=== PATIENT | male | born 1970 | race American Indian/Alaskan Native ===

== ENCOUNTER 2017-12-21 18:23 | Emergency (ER) | payer OTHER ==
[2017-12-21 18:40] VITALS: RESP 18; BMI 27.1
--- NOTE | 2017-12-21 18:58 | ED PDOC ---
Arrival/HPI - General Historian: Patient - History of Present Illness Time/Duration: Other (see hpi) Quality: Aching Context: Home <Remy Sandoval - Last Filed: 12/21/17 20:37> <Hugo Cisse - Last Filed: 12/21/17 20:42> - General Chief Complaint: Fever Time Seen by Provider: 12/21/17 18:58 - History of Present Illness Narrative History of Present Illness (Text): 12/21/17 18:58 This 47 yo male who denies pmh, presents to this ED c/o fever, right posterior thigh, and posterior knee pain x 3 days. Patient stated pain and fever have been progressively worsen. Patient denies sore throat, SOB, CP, abdominal pain , urinary symptoms, penile discharge, testicular pain, genital trauma, skin rash , groin pain, abscess, MOHAN, earache, cough, recent surgery, recent leg trauma, recent travel, sick contact, MOHAN, neck stiffness, photophobia, or dizziness. Patient's girlfriend felt patient right lower leg feels warmer than left leg ( Remy Sandoval) Past Medical History - Provider Review Nursing Documentation Reviewed: Yes - Infectious Disease Hx of Infectious Diseases: None - Cardiac Hx Hypertension: Yes - Psychiatric Hx Substance Use: No <Remy Sandoval - Last Filed: 12/21/17 20:37> Family/Social History - Physician Review Nursing Documentation Reviewed: Yes Family/Social History: Other (noncontributory) Smoking Status: Current Some Days Smoker Hx Alcohol Use: No Hx Substance Use: No <Remy Sandoval - Last Filed: 12/21/17 20:37> Allergies/Home Meds <Remy Sandoval - Last Filed: 12/21/17 20:37> <Hugo Cisse - Last Filed: 12/21/17 20:42> Allergies/Adverse Reactions: Allergies No Known Allergies Allergy (Verified 12/21/17 19:12) Home Medications: Home Meds Medication Instructions Recorded Confirmed Losartan [Cozaar] 12.5 mg PO DAILY 12/21/17 12/21/17 Review of Systems - Review of Systems Constitutional: Fevers. absent: Fatigue, Weight Change, Night Sweats Eyes: Normal. absent: Photophobia ENT: Normal. absent: Sore Throat, Rhinorrhea Respiratory: Normal. absent: SOB, Cough Cardiovascular: Normal. absent: Chest Pain, Palpitations Gastrointestinal: Normal. absent: Abdominal Pain, Nausea, Vomiting Genitourinary Male: Normal. absent: Dysuria, Frequency, Hematuria Musculoskeletal: Other (see hpi) Skin: Rash (tinea pedis), Pruritis, Skin Lesions Neurological: Normal. absent: Headache, Dizziness, Focal Weakness, Gait Changes , Speech Changes Endocrine: Normal Hemo/Lymphatic: Normal Psychiatric: Normal <[facility] - Last Filed: 12/21/17 20:37> Physical Exam Temperature: Febrile Blood Pressure: Hypertensive Pulse: Tachycardic Respiratory Rate: Normal Appearance: Positive for: Well-Appearing, Non-Toxic, Comfortable Pain Distress: None Mental Status: Positive for: Alert and Oriented X 3 - Systems Exam Head: Present: Atraumatic, Normocephalic Pupils: Present: PERRL Extroacular Muscles: Present: EOMI Conjunctiva: Present: Normal Mouth: Present: Moist Mucous Membranes Neck: Present: Normal Range of Motion Respiratory/Chest: Present: Clear to Auscultation, Good Air Exchange. No: Respiratory Distress, Accessory Muscle Use Cardiovascular: Present: Regular Rate and Rhythm, Normal S1, S2. No: Murmurs Abdomen: No: Tenderness, Distention, Peritoneal Signs Back: Present: Normal Inspection Upper Extremity: Present: Normal Inspection, Normal ROM, NORMAL PULSES, Neurovascularly Intact, Capillary Refill < 2s. No: Cyanosis, Edema Lower Extremity: Present: CALF TENDERNESS, NORMAL PULSES, Normal ROM, Tenderness ((+) posterior right thigh tenderness. (+) mild posterior knee tenderness. (+) extensive right Tinea pedis), Neurovascularly Intact, Capillary Refill < 2 s. No: Edema Neurological: Present: GCS=15, CN II-XII Intact, Speech Normal, Motor Func Grossly Intact, Normal Sensory Function, Normal Cerebellar Funct, Gait Normal, Memory Normal Skin: Present: Warm, Dry, Normal Color. No: Rashes Psychiatric: Present: Alert, Oriented x 3, Normal Insight, Normal Concentration <Sandoval,Nahim P - Last Filed: 12/21/17 20:37> Vital Signs Temp Pulse Resp BP Pulse Ox 12/21/17 19:54 100.1 F H 98 H 18 157/96 H 98 12/21/17 18:40 100.9 F H 106 H 18 175/83 H 97 Medical Decision Making Re-evaluation Time: 20:37 Reassessment Condition: Re-examined, Improved - EKG Interpretation Interpreted by ED Physician: Yes (NSR @ [address] changes) Type: 12 lead EKG Comparison: No previous EKG avail. <Remy Sandoval - Last Filed: 12/21/17 20:37> <Hugo Cisse - Last Filed: 12/21/17 20:42> ED Course and Treatment: 12/21/17 20:37 Re-evaluation. Patient feels better. Discussed results and plan with patient who expresses understanding. All questions answered and there is agreement with the plan to discharge home with instructions. Patient stable for discharge. Return if symptoms persist or worsen (Remy Sandoval) - Lab Interpretations Lab Results: 12/21/17 19:30 12/21/17 19:30 Lab Results 12/21/17 20:02: Urine Color Yellow, Urine Appearance Clear, Urine pH 6.0, Ur Specific [place] 1.010, Urine Protein Trace H, Urine Glucose (UA) Negative, Urine Ketones Negative, Urine Blood Moderate H, Urine Nitrate Negative, Urine Bilirubin Negative, Urine Urobilinogen 1.0 H, Ur Leukocyte Esterase Negative, Urine RBC 15 - 20, Urine WBC 0 - 2, Ur Epithelial Cells None, Urine Bacteria Mod 12/21/17 19:30: Influenza Typ A,B (EIA) Negative for flu a/b 12/21/17 19:30: Sodium 140, Chloride 102, Potassium 3.0 L, Carbon Dioxide 27, Anion Gap 14, BUN 14, Creatinine 1.0, Est GFR ( Amer) > 60, Est GFR (Non- Af Amer) > 60, Random Glucose 154 H, Calcium 8.7, Phosphorus 1.9 L, Magnesium 2.1, Total Bilirubin 0.4, AST 28, ALT 37, Alkaline Phosphatase 67, Total Protein 7.0, Albumin 3.7, Globulin 3.3, Albumin/Globulin Ratio 1.1 12/21/17 19:30: pO2 61 H, VBG pH 7.40, VBG pCO2 47.0, VBG HCO3 29.1 H, VBG Total CO2 30.5 H, VBG O2 Sat (Calc) 95.1 H, VBG Base Excess 3.5 H, VBG Potassium 2.9 L, Sodium 138.0, Chloride 105.0, Glucose 166 H, Lactate 1.3, FiO2 21.0, Venous Blood Potassium 2.9 L 12/21/17 19:30: PT 14.2 H, INR 1.24 H, APTT 28.3 12/21/17 19:30: WBC 12.0 H, RBC 3.92, Hgb 11.1 L, Hct 32.5 L, MCV 82.9, MCH 28.3 , MCHC 34.2, RDW 14.6 H, Plt Count 151, MPV 11.7 H, Gran % 84.6 H, Lymph % (Auto ) 9.0 L, [place] % (Auto) 6.0, Eos % (Auto) 0.3 L, Baso % (Auto) 0.1, Gran # 10.12 H, Lymph # (Auto) 1.1 L, [place] # (Auto) 0.7 H, Eos # (Auto) 0.0, Baso # (Auto) 0.01, ESR Pending - RAD Interpretation Radiology Orders: 12/21/17 19:13 CHEST PORTABLE [RAD] Stat 12/21/17 19:16 DUPLEX LOWER EXTRM VEIN RIGHT [US] Stat - Medication Orders Current Medication Orders: Acetaminophen (Tylenol 325mg Tab) 975 mg PO ONCE PRN PRN Reason: Fever >100.4 F Last Admin: 12/21/17 19:54 Dose: 975 mg MAR Pain/Vitals Document 12/21/17 19:54 (Rec: 12/21/17 19:54 [id number] Pain Reassessment Is This A Pain ReAssessment? No Sleep Is patient sleeping during reassessment? No Presence of Pain Presence of Pain No Discontinued Medications Amoxicillin/Clavulanate Potassium (Augmentin 875 Mg-125 Mg Tab) 1 tab PO STAT STA PRN Reason: Protocol Stop: 12/21/17 20:37 Sodium Chloride (Sodium Chloride 0.9%) 1,000 mls @ 999 mls/hr IV .Q1H1M STA Stop: 12/21/17 20:15 Last Admin: 12/21/17 19:55 Dose: 999 mls/hr eMAR Start Stop Document 12/21/17 19:55 SH (Rec: 12/21/17 19:55 SH [id number]) Intravenous Solution Start Date 12/21/17 Start Time 19:55 Potassium Chloride (K-Dur 20 Meq Er Tab) 60 meq PO STAT STA Stop: 12/21/17 20:19 - PA / POINT OF SALE ASSOCIATE / Resident Statement ROSARIO has reviewed & agrees with the documentation as recorded. ROSARIO has examined the patient and agrees with the treatment plan. <Hugo Cisse - Last Filed: 12/21/17 20:42> Disposition/Present on Arrival - Present on Arrival Any Indicators Present on Arrival: No History of DVT/PE: No History of Uncontrolled Diabetes: No Urinary Catheter: No History of Decub. Ulcer: No History Surgical Site Infection Following: None - Disposition Have Diagnosis and Disposition been Completed?: Yes Disposition Time: 20:38 Patient Plan: Discharge <Remy Sandoval - Last Filed: 12/21/17 20:37> <Hugo Cisse - Last Filed: 12/21/17 20:42> - Disposition Diagnosis: Fever, Thigh pain, Tinea pedis, Hypokalemia Disposition: HOME/ ROUTINE Patient Problems: Current Active Problems Problem Status Onset Fever Acute Hypokalemia Acute Thigh pain Acute Tinea pedis Acute Condition: GOOD Discharge Instructions (ExitCare): Fever, Adult (DC), Athlete's Foot (DC) Additional Instructions: Call private doctor for follow up visit in 1-2 days. Take medication as instructed. Drink plenty of fluids. Return to emergency if symptoms worsen. Prescriptions: Acetaminophen [Tylenol 325mg tab] 650 mg PO Q4H PRN #30 tab PRN Reason: Fever >100.4 F Amoxicillin/Clavulanate [Augmentin 875 MG-125 MG] 1 tab PO BID #14 tab Ibuprofen [Motrin] 600 mg PO Q8 PRN #30 tab PRN Reason: Fever >100.4 F Referrals: PCP,NO [Primary Care Provider] - Follow up with primary Fabi Carter MD [Staff Provider] - Follow up with primary Forms: [employer] ([place]ian), WORK NOTE
[2017-12-21] MEDS ORDERED: Sodium Chloride 0.9% 1,000 ML IV STA (19:15)
[2017-12-21 19:55] VITALS: O2SAT 98
[2017-12-21 19:58] LABS: VENOUS BLOOD GAS BASE EXCESS 3.5 mmol/L (0.0-2.0); VENOUS BLOOD GAS PO2 61 mm/Hg (30-55)
[2017-12-21 19:59] LABS: BASO # 0.01 K/mm3 (0.0-2.0); BASO % 0.1 % (0.0-3.0); EOS % 0.3 % (1.5-5.0); GRAN # 10.12 (1.4-6.5); GRAN % 84.6 % (50.0-68.0); HEMOGLOBIN 11.1 g/dL (14.0-18.0); LYMPH # 1.1 (1.2-3.4); MEAN CELL VOLUME 82.9 fl (80.0-105.0); MEAN CORPUSCULAR HEMOGLOBIN 28.3 pg (25.0-35.0); MEAN CORPUSCULAR HGB CONC 34.2 g/dl (31.0-37.0); MEAN PLATELET VOLUME 11.7 fl (7.0-11.0); MONO # 0.7 (0.1-0.6); RBC 3.92 10^6/uL (3.5-6.1); RED CELL DISTRIBUTION WIDTH 14.6 % (11.5-14.5)
[2017-12-21 20:07] LABS: ALB/GLOB RATIO 1.1 (1.1-1.8); ALBUMIN 3.7 g/dL (3.0-4.8); ALT/SGPT 37 U/L (7-56); AST/SGOT 28 U/L (17-59); BLOOD UREA NITROGEN 14 mg/dL (7-21); CALCIUM 8.7 mg/dL (8.4-10.5); GFR AFRICAN-AMERICAN > 60; GFR NON-AFRICAN AMERICAN > 60
[2017-12-21 20:10] LABS: INR 1.24 (0.93-1.08); PARTIAL THROMBOPLASTIN TIME 28.3 Seconds (25.1-36.5); PROTHROMBIN TIME 14.2 SECONDS (9.4-12.5)
[2017-12-21 20:15] LABS: URINE APPEARANCE CLEAR (CLEAR); URINE BILIRUBIN NEGATIVE (NEGATIVE); URINE BLOOD MODERATE (NEGATIVE); URINE COLOR YELLOW (YELLOW); URINE GLUCOSE (UA) NEGATIVE (NEGATIVE); URINE LEUKOCYTE ESTERASE NEGATIVE Leu/uL (NEGATIVE); URINE PROTEIN TRACE mg/dL (<30 mg/dL)
[2017-12-21] MEDS ORDERED: Potassium Chloride 20 mEq ER Tab PO STA (20:18)
[2017-12-21 20:21] LABS: URINE BACTERIA MOD (NEG); URINE RBC 15 - 20 /hpf (0-2); URINE WBC 0 - 2 /hpf (0-6)
[2017-12-21] MEDS ORDERED: Amoxicillin-Clav 875-125 mg Tab PO STA (20:36)
[2017-12-21 21:10] VITALS: TEMP 98.8
[2017-12-21 21:45] VITALS: BP 157/86; PULSE 83
--- NOTE | 2017-12-22 09:28 | RAD ---
HISTORY: Sepsis Patient COMPARISON: No prior. FINDINGS: LUNGS: No active pulmonary disease. PLEURA: No significant pleural effusion identified, no pneumothorax apparent. CARDIOVASCULAR: Normal. OSSEOUS STRUCTURES: No significant abnormalities. VISUALIZED UPPER ABDOMEN: Normal. OTHER FINDINGS: None. IMPRESSION: No active disease.
--- NOTE | 2017-12-22 09:44 | CARD ---
APPROVED REPORT EKG Measurement Heart [id number] <Conclusion> Normal sinus rhythm T wave abnormality, consider inferior ischemia T wave abnormality, consider anterolateral ischemia VS LVH with strain pattern Abnormal ECG
--- NOTE | 2017-12-22 12:43 | US ---
PROCEDURE: Right lower extremity venous US HISTORY: Leg pain and swelling. Evaluate for DVT. PHYSICIAN(S): Zackary Mariee M.D. TECHNIQUE: Duplex sonography and color-flow Doppler with graded compression were used to evaluate the deep venous system of the right lower extremity. FINDINGS: The visualized deep venous system of the right lower extremity is sonographically normal and compressible. Normal waveforms and augmentation are seen. There is no sonographic evidence for deep venous thrombosis in the visualized segments of the right lower extremity. IMPRESSION: 1. No sonographic evidence for deep venous thrombosis in the visualized segments of the right lower extremity.
== END 2017-12-21 21:20 | disposition home or self-care (01) ==
LOC: MERGE 18:23 → ED 18:23
DX: E87.6 Hypokalemia (principal); B35.3 Tinea pedis; R50.9 Fever, unspecified; M79.651 Pain in right thigh
CPT/HCPCS: 71045; 80053; 81001; 82803; 83735; 84100; 85025; 85610; 85651; 85730; 87040; 87086; 87804; 93005; 93971; 99284; J7040

== ENCOUNTER 2018-09-07 08:37 | Emergency (ER) | payer OTHER ==
[2018-09-07 08:37] VITALS: BMI 27.1
[2018-09-07 08:52] VITALS: BP 177/101; PULSE 88; RESP 20; TEMP 98.7; O2SAT 99
--- NOTE | 2018-09-07 10:21 | ED PDOC ---
Arrival/HPI - General Chief Complaint: Abnormal Skin Integrity Time Seen by Provider: 09/07/18 09:09 Historian: Patient - History of Present Illness Narrative History of Present Illness (Text): 09/07/18 10:09 48yo male with past medical history of hypertension who present with complaint of lesion to his b/l ankle for years. states his PMD have given him topical steroid for this lesion without relieve. Reports burning pain to his left plantar foot with weight bearing. Denies trauma, swelling, redness, purulent discharge from the lesion. He have never seen a Compound Worker. Denies any other complaint. He also notes that he have Losartan at home, but don't like taking it.Denies chest pain, focal weakness, visual changes, any other complaint. Past Medical History - Provider Review Nursing Documentation Reviewed: Yes - Infectious Disease Hx of Infectious Diseases: None - Cardiac Hx Cardiac Disorders: Yes Hx Hypertension: Yes - Neurological Hx Neurological Disorder: No - Psychiatric Hx Substance Use: No - Anesthesia Hx Anesthesia: No Family/Social History - Physician Review Nursing Documentation Reviewed: Yes Family/Social History: Unknown Family HX Smoking Status: Current Some Days Smoker Hx Alcohol Use: No Hx Substance Use: No Allergies/Home Meds Allergies/Adverse Reactions: Allergies No Known Allergies Allergy (Verified 12/21/17 19:12) Home Medications: Home Meds Medication Instructions Recorded Confirmed RX: Losartan [Cozaar] 12.5 mg PO DAILY 12/21/17 09/07/18 Review of Systems - Physician Review All systems were reviewed & negative as marked: Yes - Review of Systems Constitutional: Normal Eyes: Normal ENT: Normal Respiratory: Normal Cardiovascular: Normal Gastrointestinal: Normal Genitourinary Male: Normal Musculoskeletal: Arthralgias (Left foot pain) Skin: Skin Lesions Neurological: Normal Endocrine: Normal Hemo/Lymphatic: Normal Psychiatric: Normal Physical Exam Vital Signs Reviewed: Yes Vital Signs Temp Pulse Resp BP Pulse Ox 09/07/18 08:48 98.7 F 88 20 177/101 H 99 Temperature: Afebrile Blood Pressure: Hypertensive Pulse: Regular Respiratory Rate: Normal Appearance: Positive for: Well-Appearing, Non-Toxic, Comfortable Pain Distress: None Mental Status: Positive for: Alert and Oriented X 3 - Systems Exam Head: Present: Atraumatic, Normocephalic Pupils: Present: PERRL Extroacular Muscles: Present: EOMI Conjunctiva: Present: Normal Mouth: Present: Moist Mucous Membranes Neck: Present: Normal Range of Motion Respiratory/Chest: Present: Clear to Auscultation, Good Air Exchange. No: Respiratory Distress, Accessory Muscle Use Cardiovascular: Present: Regular Rate and Rhythm, Normal S1, S2. No: Murmurs Abdomen: No: Tenderness, Distention, Peritoneal Signs Back: Present: Normal Inspection Upper Extremity: Present: Normal Inspection. No: Cyanosis, Edema Lower Extremity: Present: Normal Inspection. No: Edema Neurological: Present: GCS=15, CN II-XII Intact, Speech Normal Skin: Present: Warm, Dry, Normal Color, Other (Scaly dry lesion noted to posterior b/l ankles. No erythema. No discharge. No warmth. No TTP. No sign of infection.). No: Rashes Psychiatric: Present: Alert, Oriented x 3, Normal Insight, Normal Concentration Medical Decision Making ED Course and Treatment: 09/07/18 19:14 48yo male present to emergency department for stated history. PT was hemodynamically stable in Emergency department . His BP was elevated, he stated that he does not like taking medication and is not complaint with his medication. He denies CP, SOB, focal weakness, visual changes, slurred speech. He was advised to take his medications. Foot xray was ordered for possible plantar fasciitis. PEr the RN pt declined xray He noted that he has been applying prescribed cortisone cream to the area. He was DC and strongly advised to follow up with a Compound Worker. He was also referred to a Partition Setter. He was ambulatory in emergency department . - RAD Interpretation Radiology Orders: 09/07/18 09:19 FOOT LEFT 3 VIEWS ROUTINE [RAD] Stat - Medication Orders Current Medication Orders: Discontinued Medications Ibuprofen (Motrin Tab) 600 mg PO STAT STA Stop: 09/07/18 09:21 Last Admin: 09/07/18 09:33 Dose: 600 mg MAR Pain/Vitals Document 09/07/18 09:33 VALENTINO (Rec: 09/07/18 09:34 [id number] Pain Reassessment Is This A Pain ReAssessment? Yes Presence of Pain Presence of Pain Yes Location Left, Right or Bilateral Bilateral Pain Location Body Site Foot Intensity 4 Aggravating Factors Walking Disposition/Present on Arrival - Present on Arrival Any Indicators Present on Arrival: No History of DVT/PE: No History of Uncontrolled Diabetes: No Urinary Catheter: No History of Decub. Ulcer: No History Surgical Site Infection Following: None - Disposition Have Diagnosis and Disposition been Completed?: Yes Diagnosis: Foot pain, Rash Disposition: HOME/ ROUTINE Disposition Time: 10:30 Patient Plan: Discharge Condition: STABLE Discharge Instructions (ExitCare): Skin Rash, Muscle and Bone Pain (DC) Additional Instructions: Follow up with your doctor/Compound Worker/Partition Setter Return to emergency department for any new or worsening symptoms Referrals: Hussein Littlejohn MD [Staff Provider] - Follow up with primary Yemi Iglesias DPM [Staff Provider] - Follow up with primary Forms: [employer] ([place])
== END 2018-09-07 10:30 | disposition home or self-care (01) ==
LOC: ED 08:37
DX: R21 Rash and other nonspecific skin eruption (principal); M79.672 Pain in left foot; I10 Essential (primary) hypertension